=== PATIENT | male | born 1970 | race Caucasian/White ===

== ENCOUNTER 2017-12-22 09:18 | Emergency (ER) | payer MEDICAID ==
[~2017-12-22] VITALS: Ht 177.8 cm; Wt 85.4 kg
[~2017-12-22 09:18] MED LIST: ALBU18HF2; ARIP5TAB4 PO; BECL7.3A7 INH; CITA40TA17 PO; CLON1TAB4 PO; HYDR-3972 PO; OMEP40CA37 PO
[2017-12-22 09:22] VITALS: BP 155/104
== END 2017-12-22 11:20 | disposition left against medical advice (07) ==
LOC: ER 09:19
DX: R05 Cough (principal); Z53.21 Procedure and treatment not carried out due to patient leaving prior to being seen by health care provider

== ENCOUNTER 2021-02-21 17:23 | Emergency (ER) | payer MEDICAID ==
[~2021-02-21] VITALS: Ht 177.8 cm; Wt 88.6 kg
[~2021-02-21 17:23] MED LIST changes: +ARIP5TAB14 PO; -ARIP5TAB4 PO; +CLON1TAB12 PO; -CLON1TAB4 PO; +OMEP40CA13 PO; -OMEP40CA37 PO
[2021-02-21 17:40] VITALS: BP 188/120
[2021-02-21] MEDS ORDERED: IBUP-1984 PO (18:00)
[2021-02-21] MEDS ORDERED: PENI500T2 PO (18:00)
[2021-02-21] MEDS ORDERED: ibuprofen tablet 400 MG TABLET PO ONE (18:00)
== END 2021-02-21 18:10 | disposition home or self-care (01) ==
LOC: ER 17:23
DX: K04.7 Periapical abscess without sinus (principal); K08.89 Other specified disorders of teeth and supporting structures; I50.9 Heart failure, unspecified; I11.0 Hypertensive heart disease with heart failure; I25.2 Old myocardial infarction; J44.9 Chronic obstructive pulmonary disease, unspecified; F15.90 Other stimulant use, unspecified, uncomplicated; Z79.899 Other long term (current) drug therapy; Z88.8 Allergy status to other drugs, medicaments and biological substances
CPT/HCPCS: 99283

== ENCOUNTER 2021-04-08 21:34 | Emergency (ER) | payer MEDICAID ==
[~2021-04-08] VITALS: Ht 177.8 cm; Wt 74.5 kg
[~2021-04-08 21:34] MED LIST changes: -OMEP40CA13 PO; +OMEP40CA21 PO
[2021-04-08 21:35] VITALS: BP 146/104
[2021-04-08] MEDS ORDERED: amox tr/potassium clavulanate 875/125mg TAB PO ONE (22:50)
[2021-04-08] MEDS ORDERED: HYDROcodone/acetaminophen 5mg/325mg tablet PO ONE (22:50)
[2021-04-08] MEDS ORDERED: AMOX-117 PO (23:02)
== END 2021-04-08 23:28 | disposition home or self-care (01) ==
LOC: ER 21:34
DX: K04.7 Periapical abscess without sinus (principal); K02.9 Dental caries, unspecified; I11.0 Hypertensive heart disease with heart failure; I50.9 Heart failure, unspecified; I25.2 Old myocardial infarction; J44.9 Chronic obstructive pulmonary disease, unspecified; F17.200 Nicotine dependence, unspecified, uncomplicated; F15.90 Other stimulant use, unspecified, uncomplicated; Z72.89 Other problems related to lifestyle; Z88.8 Allergy status to other drugs, medicaments and biological substances; Z79.899 Other long term (current) drug therapy
CPT/HCPCS: 99283

== ENCOUNTER 2022-01-30 18:05 | Emergency (ER) | payer MEDICAID ==
[~2022-01-30] VITALS: Ht 177.8 cm; Wt 90.9 kg
[2022-01-30 19:09] LABS: BASOPHILS % (AUTO) 0.3 % (0-1); EOSINOPHILS # (AUTO) 0.4 X10'3 (0-0.9); EOSINOPHILS % (AUTO) 4.6 % (0-6); HEMATOCRIT 50.9 % (42.0-52.0); HEMOGLOBIN 17.6 g/dl (14.0-17.9); LYMPHOCYTES # (AUTO) 1.8 X10'3 (1.1-4.8); LYMPHOCYTES % (AUTO) 22.9 % (21-51); MEAN CORPUSCULAR HEMOGLOBIN 33.2 PG (27.0-31.0); MEAN CORPUSCULAR HGB CONC 34.5 g/dL (33.0-36.5); MEAN CORPUSCULAR VOLUME 96.4 FL (78-98); MEAN PLATELET VOLUME 8.8 FL (7.4-10.4); MONOCYTES # (AUTO) 0.6 X10'3 (0-0.9); NEUTROPHILS # (AUTO) 5.1 X10'3 (1.8-7.7); NEUTROPHILS % (AUTO) 64.2 % (42-75); PLATELET COUNT 195 X10'3 (140-440); RED BLOOD COUNT 5.28 X10'6 (4.70-6.10); RED CELL DISTRIBUTION WIDTH 12.8 % (11.5-14.5); WHITE BLOOD COUNT 7.9 X10'3 (4.5-11.0)
[2022-01-30 19:27] LABS: ALANINE AMINOTRANSFERASE 49 U/L (12-78); ALBUMIN 3.5 G/DL (3.4-5.0); ALBUMIN/GLOBULIN RATIO 0.8 (1.1-1.5); ALKALINE PHOSPHATASE 51 IU/L (46-116); ANION GAP 7 (8-16); ASPARTATE AMINO TRANSFERASE 30 U/L (10-37); BILIRUBIN,TOTAL 0.5 MG/DL (0.1-1.0); BLOOD UREA NITROGEN 15 MG/DL (7-18); CALCIUM 8.9 MG/DL (8.5-10.1); CHLORIDE 102 MMOL/L (99-107); GLUCOSE 92 MG/DL (70-104); POTASSIUM 4.1 MMOL/L (3.5-5.1); SODIUM 141 MMOL/L (135-145); TOTAL CARBON DIOXIDE 32.1 MMOL/L (24-32); TOTAL PROTEIN 7.7 G/DL (6.4-8.2); eGFR 78 ML/MIN
[2022-01-30] MEDS ORDERED: albuterol 2.5 MG/3 ML nebule NEB ONE ×3 (20:20→22:25)
[2022-01-30] MEDS ORDERED: ipratropium/albuterol 3ml nebule NEB ONE (20:20)
[2022-01-30] MEDS ORDERED: methylPREDNISolone sod succ 125mg/2ml vial IV ONE (20:20)
[2022-01-30] MEDS ORDERED: magnesium 2GM in 50ml NS 50 ML IV ONE (20:20)
[2022-01-30] MEDS ORDERED: lisinopril 10 MG tablet PO ONE (21:25)
[2022-01-30] MEDS ORDERED: furosemide 10 MG/1 ML 10ml inj IV ONE (21:25)
[2022-01-30] MEDS ORDERED: ALBU8.5H17 IH (21:55)
[2022-01-30] MEDS ORDERED: PRED20TA PO (21:55)
[2022-01-30] MEDS ORDERED: LISI40TA13 PO (21:55)
--- NOTE | 2022-01-30 23:26 | NUR ---
[place] ([facility]) [phone]
[2022-01-31] MEDS ORDERED: predniSONE 20 mg tablet PO ONE (00:05)
--- NOTE | 2022-01-31 00:08 | NUR ---
2nd SVN not given tx Canelled by ER Physician
[2022-01-31 00:36] VITALS: BP 170/110
== END 2022-01-31 00:38 | disposition home or self-care (01) ==
LOC: ER 18:06
DX: I10 Essential (primary) hypertension (principal); J44.9 Chronic obstructive pulmonary disease, unspecified; I11.0 Hypertensive heart disease with heart failure; F12.10 Cannabis abuse, uncomplicated; Z88.8 Allergy status to other drugs, medicaments and biological substances; Z88.6 Allergy status to analgesic agent
CPT/HCPCS: 36415; 71045; 80053; 83880; 84484; 85025; 93005; 94640; 96365; 96366; 96375; 99285; J1940; J2930; J3475; 94760

== ENCOUNTER 2022-06-02 13:18 | Emergency (ER) | payer MEDICAID ==
[~2022-06-02] VITALS: Ht 177.8 cm; Wt 90.9 kg
[~2022-06-02 13:18] MED LIST changes: +ALBU8.5H17 IH
[2022-06-02] MEDS ORDERED: normal saline 1000ML IV soln IVB ONE (14:25)
[2022-06-02] MEDS ORDERED: ipratropium/albuterol 3ml nebule NEB STA (14:32)
[2022-06-02 14:51] LABS: BASOPHILS # (AUTO) 0.1 X10'3 (0-0.2); BASOPHILS % (AUTO) 0.6 % (0-1); EOSINOPHILS # (AUTO) 0.2 X10'3 (0-0.9); EOSINOPHILS % (AUTO) 1.7 % (0-6); HEMATOCRIT 49.7 % (42.0-52.0); HEMOGLOBIN 16.9 g/dl (14.0-17.9); LYMPHOCYTES # (AUTO) 1.4 X10'3 (1.1-4.8); LYMPHOCYTES % (AUTO) 13.5 % (21-51); MEAN CORPUSCULAR HEMOGLOBIN 32.6 PG (27.0-31.0); MEAN CORPUSCULAR HGB CONC 34.1 g/dL (33.0-36.5); MEAN CORPUSCULAR VOLUME 95.6 FL (78-98); MEAN PLATELET VOLUME 7.8 FL (7.4-10.4); MONOCYTES # (AUTO) 0.5 X10'3 (0-0.9); MONOCYTES % (AUTO) 4.9 % (2-12); NEUTROPHILS # (AUTO) 8.1 X10'3 (1.8-7.7); NEUTROPHILS % (AUTO) 79.3 % (42-75); PLATELET COUNT 180 X10'3 (140-440); RED CELL DISTRIBUTION WIDTH 13.9 % (11.5-14.5); WHITE BLOOD COUNT 10.2 X10'3 (4.5-11.0)
[2022-06-02 15:12] LABS: ALANINE AMINOTRANSFERASE 56 U/L (12-78); ALBUMIN 3.7 G/DL (3.4-5.0); ALBUMIN/GLOBULIN RATIO 0.9 (1.1-1.5); ALKALINE PHOSPHATASE 50 IU/L (46-116); ANION GAP 11 (8-16); ASPARTATE AMINO TRANSFERASE 38 U/L (10-37); BILIRUBIN,TOTAL 0.4 MG/DL (0.1-1.0); BLOOD UREA NITROGEN 16 MG/DL (7-18); BUN/CREATININE RATIO 18.2 (5.4-32.0); CALCIUM 8.4 MG/DL (8.5-10.1); CHLORIDE 105 MMOL/L (99-107); CREATININE 0.88 MG/DL (0.60-1.10); GLUCOSE 110 MG/DL (70-104); POTASSIUM 3.9 MMOL/L (3.5-5.1); SODIUM 144 MMOL/L (135-145); TOTAL PROTEIN 7.8 G/DL (6.4-8.2); eGFR > 90 ML/MIN
[2022-06-02 15:17] LABS: ETHANOL 0.027 GM/DL (0.0-0.010)
[2022-06-02] MEDS ORDERED: NALO4SPR BOTHNARES (15:35)
[2022-06-02 17:05] VITALS: BP 148/101
== END 2022-06-02 17:12 | disposition home or self-care (01) ==
LOC: ER 13:19
DX: T40.601A Poisoning by unspecified narcotics, accidental (unintentional), initial encounter (principal); R41.82 Altered mental status, unspecified; F10.920 Alcohol use, unspecified with intoxication, uncomplicated; Y92.89 Other specified places as the place of occurrence of the external cause; I11.9 Hypertensive heart disease without heart failure; I10 Essential (primary) hypertension; J44.9 Chronic obstructive pulmonary disease, unspecified; F15.10 Other stimulant abuse, uncomplicated; F17.200 Nicotine dependence, unspecified, uncomplicated; Z88.8 Allergy status to other drugs, medicaments and biological substances; Z79.899 Other long term (current) drug therapy
CPT/HCPCS: 36415; 71045; 80053; 80320; 84484; 85025; 93005; 94640; 96360; 99285; J7030; 94760; A4615